=== PATIENT | female | born 1940 | race African-American/Black ===

== ENCOUNTER 2018-09-20 13:19 | Emergency (ER) | payer OTHER ==
[~2018-09-20] VITALS: Ht 170.2 cm; Wt 99.8 kg
[2018-09-20 13:33] VITALS: BP 161/100
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
--- NOTE | 2018-09-20 13:40 | NUR ---
QUINTEN LEONT AT BEDSIDE
--- NOTE | 2018-09-20 14:05 | NUR ---
Patient discharged to home in stable condition. Written and verbal after care instructions given. Patient verbalizes understanding of instruction.
== END 2018-09-20 14:09 | disposition home or self-care (01) ==
LOC: ER 13:23
DX: B02.9 Zoster without complications (principal); K21.9 Gastro-esophageal reflux disease without esophagitis; Z90.49 Acquired absence of other specified parts of digestive tract

== ENCOUNTER 2018-09-23 07:51 | Emergency (ER) | payer OTHER ==
[~2018-09-23] VITALS: Ht 170.2 cm; Wt 99.8 kg
[2018-09-23 07:51] VITALS: BP 156/98
== END 2018-09-23 08:23 | disposition home or self-care (01) ==
LOC: ER 07:51
DX: B02.9 Zoster without complications (principal); K21.9 Gastro-esophageal reflux disease without esophagitis; Z90.49 Acquired absence of other specified parts of digestive tract